=== PATIENT | female | born 1980 | race Caucasian/White ===

== ENCOUNTER 2023-02-15 09:10 | Emergency (ER) | payer SELFPAY ==
[2023-02-15 09:53] LABS: Pregnancy Test - Urine (BHCG) Negative (Negative); Pregu Control Background? CLEAR/WHITE (CLR/WHITE); Pregu Control Bar Appear? YES (CONTROL BAR); Specific Gravity 1.024 (1.002-1.036)
[2023-02-15] MEDS ORDERED: Ketorolac Tromethamine 30 MG/ML VIAL ONE (09:58)
== END 2023-02-15 10:22 | disposition home or self-care (01) ==
LOC: MADERS 09:10
DX: M54.9 Dorsalgia, unspecified (principal)
CPT/HCPCS: 71045; 81025; 93005; 96372; J1885